=== PATIENT | female | born 1940 | race Caucasian/White ===

== ENCOUNTER → 2017-09-03 | Outpatient (CLI) | payer MEDICARE, OTHER ==
[~2017-09-03] MED LIST: ACET650S21 PO; ALBU6.7H INH; ALPR0.25 PO; ASCO500T8 PO; AZEL137S4 NAS; BRIN10DR EACHEYE; CHOL5000 PO; CRAN500T2 PO; CYAN10005 PO; CYCL-259 PO; Citracal PO; EZET10TA18 PO; FEXO-64 PO; FOLI0.4T2 PO; GABA600T14 PO; GABAPETIN TP; LEVO100T5 PO; LIDO700A42 TP; MONT10TA6 PO; ONDA4TAB7 PO; PANT40TA3 PO; PRIM50TA PO; SENN8.6T98 PO; TAPE50TA9 PO; TIOT4MIS5 INH; TRAV5DRO EACHEYE; TURM538C PO
[2017-09-03 12:09] LABS: BASOPHILS # (AUTO) 0.07 x10^3/uL (0-0.1); BASOPHILS % (AUTO) 1 % (0-1); EOSINOPHILS # (AUTO) 0.15 x10^3/uL (0-0.4); EOSINOPHILS % (AUTO) 2 % (1-7); LYMPHOCYTES # (AUTO) 2.16 x10^3/uL (1-3.4); LYMPHOCYTES % (AUTO) 25 % (22-44); MD NO; MEAN CORPUSCULAR HEMOGLOBIN 32.4 pg (27.0-34.8); MEAN CORPUSCULAR HGB CONC 33.8 g/dL (32.4-35.8); MEAN CORPUSCULAR VOLUME 95.9 fL (80-100); MEAN PLATELET VOLUME 8.2 fL (7.4-10.4); MONOCYTES # (AUTO) 0.92 x10^3/uL (0.2-0.8); MONOCYTES % (AUTO) 11 % (2-9); NEUTROPHILS # (AUTO) 5.36 x10^3/uL (1.8-6.8); NEUTROPHILS % (AUTO) 62 % (42-75); PLATELET COUNT 316 x10^3/uL (130-400); RED CELL DISTRIBUTION WIDTH 13.4 % (9.6-15.2)
[2017-09-03 12:14] LABS: INTERNATIONAL NORMALIZED RATIO 1.06 (0.93-1.1)
[2017-09-03 12:19] LABS: ALANINE AMINOTRANSFERASE 47 U/L (12-78); ALBUMIN 4.1 g/dL (3.4-5.0); ANION GAP 7 mmol/L (5-15); CHLORIDE 104 mmol/L (98-107)
[2017-09-03 12:22] LABS: ALKALINE PHOSPHATASE 74 U/L (45-117); BILIRUBIN,TOTAL 0.4 mg/dL (0.2-1.0); CREATININE 0.91 mg/dL (0.55-1.02); TOTAL PROTEIN 7.7 g/dL (6.4-8.2)
== END | disposition home or self-care (01) ==
LOC: STAR 10:47
PROVIDERS: ATTEND Surgery
DX: Z01.818 Encounter for other preprocedural examination (principal)
CPT/HCPCS: 36415; 80053; 83690; 85025; 85610; 93005

== ENCOUNTER 2017-09-13 05:15 | Day surgery (SDC) | payer MEDICARE, OTHER ==
[~2017-09-13] VITALS: Ht 160 cm; Wt 92.0 kg
[2017-09-13] MEDS ORDERED: LACTATED RINGERS 1,000 ML IV SCH (06:26)
[2017-09-13] MEDS ORDERED: PROPOFOL 10 MG/ML, 20ML ONE (06:49)
[2017-09-13] MEDS ORDERED: LIDOCAINE-MPF 2% ,5ML ONE (06:49)
[2017-09-13] MEDS ORDERED: ROCURONIUM 10MG/ML,5ML ONE (06:49)
[2017-09-13] MEDS ORDERED: FENTANYL PF 100 MCG/2ML IV PRN (07:00)
[2017-09-13] MEDS ORDERED: HYDROcodone/APAP 7.5-325MG/15ML UDC PO PRN (07:00)
[2017-09-13] MEDS ORDERED: ONDANSETRON 2MG/ML, 2ML IVPush PRN (07:00)
[2017-09-13] MEDS ORDERED: morphine SULFATE 10 MG/ML, 1ML IV PRN (07:00)
[2017-09-13] MEDS ORDERED: CLINDAMYCIN 150 MG/ML, 6ML ONE (07:03)
[2017-09-13] MEDS ORDERED: EPHEDRINE 50 MG/ML, 1ML ONE (07:17)
[2017-09-13] MEDS ORDERED: ONDANSETRON 2MG/ML, 2ML ONE (07:18)
[2017-09-13] MEDS ORDERED: DEXAMETHASONE 4 MG/ML, 1ML ONE (07:18)
[2017-09-13] MEDS ORDERED: FENTANYL PF 100 MCG/2ML ONE (07:30)
[2017-09-13] MEDS ORDERED: ACETAMINOPHEN 650 MG/20.3 ML UDC ONE (08:26)
[2017-09-13] MEDS ORDERED: OXYcodone 5 MG/5 ML ORAL.SOL UDC ONE ×2 (08:26→08:51)
[2017-09-13] MEDS ORDERED: ONDANSETRON ODT 8 MG ONE (08:29)
[2017-09-13] MEDS: OXYcodone 5 MG/5 ML ORAL.SOL UDC PO PRN ×2 (08:40→08:53)
[2017-09-13] MEDS ORDERED: morphine SULFATE 10 MG/ML, 1ML ONE (08:51)
[2017-09-13] MEDS ORDERED: ACETAMINOPHEN 325 MG TABLET PO ONE (09:00)
[2017-09-13] MEDS ORDERED: ONDANSETRON ODT 8 MG PO ONE (09:00)
[2017-09-13] MEDS ORDERED: GLYCOPYRROLATE 0.2MG/1ML, 5ML ONE (11:06)
[2017-09-13] MEDS ORDERED: NEOSTIGMINE 1 MG/ML, 10ML ONE (11:06)
== END 2017-09-13 11:40 ==
LOC: OUT 05:15
PROVIDERS: ATTEND Surgery
DX: K81.1 Chronic cholecystitis (principal); K82.8 Other specified diseases of gallbladder; K76.0 Fatty (change of) liver, not elsewhere classified; G89.4 Chronic pain syndrome; E78.5 Hyperlipidemia, unspecified; G62.9 Polyneuropathy, unspecified; E66.9 Obesity, unspecified; Z98.890 Other specified postprocedural states; Z91.013 Allergy to seafood; Z91.018 Allergy to other foods; Z72.89 Other problems related to lifestyle; Z88.0 Allergy status to penicillin
CPT/HCPCS: 47562; 88304; J0171; J1100; J2270; J2405; J2704; J2710; J3010; J3490; J7120; Q0162